=== PATIENT | male | born 1985 | race Two or more races ===

== ENCOUNTER 2018-01-12 08:00 | Outpatient (CLI) | payer SELFPAY ==
[2018-01-12 12:50] LABS: BASOPHILS % (AUTO) 0.4 %; EOSINOPHILS # (AUTO) 0.1 10^3/uL (0.0-0.7); EOSINOPHILS % (AUTO) 1.1 %; HGB - HEMOGLOBIN 13.8 g/dL (14.0-18.0); LYMPHOCYTES # (AUTO) 3.3 10^3/uL (1.5-3.5); LYMPHOCYTES % (AUTO) 37.1 %; MEAN CORPUSCULAR HEMOGLOBIN 30.6 pg (27.0-31.0); MEAN CORPUSCULAR HGB CONC 33.5 g/dL (32.0-36.0); MEAN CORPUSCULAR VOLUME 91.3 fL (80.0-94.0); MEAN PLATELET VOLUME 9.3 fL (7.4-11.4); MONOCYTES # (AUTO) 0.6 10^3/uL (0.0-1.0); MONOCYTES % (AUTO) 7.3 %; NEUTROPHILS # (AUTO) 4.7 10^3/uL (1.5-6.6); NEUTROPHILS % (AUTO) 54.1 %; PLT - PLATELET COUNT 236 10^3/uL (130-450); RED BLOOD COUNT 4.53 10^6/uL (4.70-6.10); RED CELL DISTRIBUTION WIDTH 12.5 % (12.0-15.0); WHITE BLOOD COUNT 8.8 x10^3/uL (4.8-10.8)
[2018-01-12 13:18] LABS: ALBUMIN 4.3 g/dL (3.2-5.5); ALBUMIN/GLOBULIN RATIO 1.4 (1.0-2.2); ALKALINE PHOSPHATASE 49 IU/L (42-121); ALT ALANINE AMINOTRANSFERASE 43 IU/L (10-60); AST ASPARTATE AMINOTRANSFERASE 24 IU/L (10-42); BILIRUBIN,TOTAL 1.1 mg/dL (0.2-1.0); BUN - BLOOD UREA NITROGEN 10 mg/dL (6-20); CALCIUM 9.5 mg/dL (8.5-10.3); CARBON DIOXIDE - CO2 27 mmol/L (21-32); CHLORIDE 103 mmol/L (101-111); CHOL/HDL RATIO 4.8 (<5.0); CHOLESTEROL 145 mg/dL; CREATININE 0.5 mg/dL (0.6-1.2); GFR - MDRD 194 (>89); GLUCOSE 132 mg/dL (70-100); HDL CHOLESTEROL 30 mg/dL; LDL CHOLESTEROL,CALCULATED 94 mg/dL; LDL/HDL RATIO 3.1 (<3.6); SODIUM 138 mmol/L (135-145); TOTAL PROTEIN 7.4 g/dL (6.7-8.2); VLDL CHOLESTEROL 21 mg/dL
[2018-01-12 14:13] LABS: HB2 TOTAL 15.7 g/dL; HEMOGLOBIN A1C 1.46 g/dL; HEMOGLOBIN A1C % 10.7 % (4.6-6.2)
== END 2018-01-12 08:01 | disposition home or self-care (01) ==
LOC: LAB.N 08:00
PROVIDERS: ATTEND Family Medicine
DX: E11.9 Type 2 diabetes mellitus without complications (principal)
CPT/HCPCS: 36415; 80053; 80061; 83036; 83721; 85025

== ENCOUNTER 2018-05-03 08:00 | Outpatient (CLI) | payer SELFPAY ==
[2018-05-03 19:19] LABS: CREATININE 0.5 mg/dL (0.6-1.2)
[2018-05-03 19:29] LABS: HB2 TOTAL 15.7 g/dL; HEMOGLOBIN A1C 1.13 g/dL; HEMOGLOBIN A1C % 8.7 % (4.6-6.2)
== END 2018-05-03 08:01 ==
LOC: LAB.N 08:00
PROVIDERS: ATTEND Family Medicine
DX: E11.9 Type 2 diabetes mellitus without complications (principal)
CPT/HCPCS: 36415; 80048; 83036

== ENCOUNTER 2018-08-03 07:19 | Outpatient (CLI) | payer SELFPAY ==
[2018-08-03 13:24] LABS: CALCIUM 8.9 mg/dL (8.5-10.3); CREATININE 0.5 mg/dL (0.6-1.2)
[2018-08-03 13:54] LABS: HEMOGLOBIN A1C 2.04 g/dL; HEMOGLOBIN A1C % 13.1 % (4.6-6.2)
== END 2018-08-03 23:59 | disposition home or self-care (01) ==
LOC: LAB.N 07:19
PROVIDERS: ATTEND Family Medicine
DX: E11.9 Type 2 diabetes mellitus without complications (principal)
CPT/HCPCS: 36415; 80048; 83036

== ENCOUNTER 2019-01-06 10:36 | Outpatient (CLI) | payer SELFPAY ==
[2019-01-06 13:23] LABS: CALCIUM 9.4 mg/dL (8.5-10.3); CREATININE 0.6 mg/dL (0.6-1.2)
[2019-01-06 14:34] LABS: HEMOGLOBIN A1C 1.48 g/dL; HEMOGLOBIN A1C % 10.1 % (4.6-6.2)
== END 2019-01-06 23:59 | disposition home or self-care (01) ==
LOC: LAB.N 10:36
PROVIDERS: ATTEND Physician Assistant Medical
DX: E11.65 Type 2 diabetes mellitus with hyperglycemia (principal)
CPT/HCPCS: 36415; 80048; 83036

== ENCOUNTER 2019-05-02 08:00 | Outpatient (CLI) | payer SELFPAY ==
[2019-05-02 19:13] LABS: HB2 TOTAL 15.6 g/dL; HEMOGLOBIN A1C 1.91 g/dL; HEMOGLOBIN A1C % 13.4 % (4.6-6.2)
== END 2019-05-02 23:59 | disposition home or self-care (01) ==
LOC: LAB.N 08:00
PROVIDERS: ATTEND Nurse Practitioner Gerontology
DX: I10 Essential (primary) hypertension (principal); E11.65 Type 2 diabetes mellitus with hyperglycemia
CPT/HCPCS: 36415; 83036

== ENCOUNTER 2019-09-12 13:35 | Outpatient (CLI) | payer SELFPAY ==
[2019-09-12 19:50] LABS: HB2 TOTAL 14.8 g/dL; HEMOGLOBIN A1C 1.11 g/dL
== END 2019-09-12 23:59 | disposition home or self-care (01) ==
LOC: LAB.N 13:35
PROVIDERS: ATTEND Nurse Practitioner Gerontology
DX: E11.65 Type 2 diabetes mellitus with hyperglycemia (principal)
CPT/HCPCS: 36415; 83036